=== PATIENT | female | born 1965 | race Asian ===

== ENCOUNTER 2016-11-12 11:42 | Emergency (ER) | payer SELFPAY ==
[2016-11-12 11:53] VITALS: BP 131/81
[2016-11-12] MEDS ORDERED: Bacitracin Oint 1 GM U/D Packet TOP ONE (12:26)
[2016-11-12] MEDS ORDERED: Acetaminophen 325 MG Tab PO ONE (12:27)
--- NOTE | 2016-11-12 12:32 | EDM.PDOC ---
ED HPI GENERAL MEDICAL PROBLEM - General Chief Complaint: Laceration Stated Complaint: [id number] FELL DOWN Time Seen by Provider: 11/12/16 12:22 Source of Information: Reports: Patient (via friend) History Limitations: Reports: Language Barrier - History of Present Illness INITIAL COMMENTS - FREE TEXT/NARRATIVE: This 50 yo female patient reports to the ED with a laceration to her left scalp due to a fall on Thursday (11/10/16) at 0500. 2 days ago the patient slipped on the floor and hit her head on the corner of the wall. The patient has controlled the bleeding, but has continued to have some oozing and a headache. The patient just told her friend about the incident and was brought directly to the ED. Onset Date: 11/10/16 Onset Time: 05:00 Duration: Constant Location: Reports: Head Quality: Reports: Ache, Dull Severity: Moderate Improves with: Reports: None Worsens with: Reports: None Context: Reports: Trauma (fall (2 days ago)) Associated Symptoms: Reports: No Other Symptoms Left Parietal Head Pain Score (Numeric/FACES): 3 - Related Data Allergies Allergy/AdvReac Type Severity Reaction Status Date / Time No Known Allergies Allergy Verified 11/12/16 12:21 Home Meds: Home Meds . [No Known Home Meds] 11/12/16 [History] Past Medical History - Past Surgical History Musculoskeletal Surgical History: Reports: Shoulder Surgery Social & Family History - Family History Family Medical History: Noncontributory ED ROS GENERAL - Review of Systems Review Of Systems: ROS reveals no pertinent complaints other than HPI. ED EXAM, SKIN/RASH Exam: See Below Exam Limited By: Language Barrier (the patient's friend speaks Peruvian and translated for the patient) General Appearance: Alert, WD/WN, Mild Distress, Thin Eye Exam: Bilateral Eye: EOMI, Normal Inspection, PERRL Ears: Normal External Exam, Normal Canal, Hearing Grossly Normal, Normal TMs Nose: Normal Inspection, Normal Mucosa, No Blood Throat/Mouth: Normal Inspection, Normal Lips, Normal Teeth, Normal Gums, Normal Oropharynx, Normal Voice, No Airway Compromise Head: Other (The patient has a 2 cm laceration with healing to her left scalp. Due to the age of the laceration and current stage of healing. The patient was encouraged to continue to keep the area clean and dry. ) Neck: Normal Inspection, Supple, Non-Tender, Full Range of Motion Respiratory/Chest: No Respiratory Distress, Lungs Clear, Normal Breath Sounds, No Accessory Muscle Use, Chest Non-Tender Cardiovascular: Normal Peripheral Pulses, Regular Rate, Rhythm, No Edema, No Gallop, No JVD, No Murmur, No Rub GI/Abdominal: Normal Bowel Sounds, Soft, Non-Tender, No Organomegaly, No Distention, No Abnormal Bruit, No Mass (Female) Exam: Deferred Rectal (Female) Exam: Deferred Back Exam: Normal Inspection, Full Range of Motion, NT Extremities: Normal Inspection, Normal Range of Motion, Non-Tender, No Pedal Edema, Normal Capillary Refill Neurological: Alert, Oriented, CN II-XII Intact, Normal Cognition, Normal Gait, Normal Reflexes, No Motor/Sensory Deficits Psychiatric: Normal Affect, Normal Mood Skin: Warm, Dry, Normal Color, No Rash Location, Skin: Head Characteristics: Linear Associated features: Tenderness. No: Warmth, Wwelling Lymphatic: No Adenopathy Course - Vital Signs Last Recorded V/S: Last Vital Signs Temp 36.8 C 11/12/16 11:52 Pulse 73 11/12/16 11:52 Resp 16 11/12/16 11:52 BP 131/81 11/12/16 11:52 Pulse Ox 98 11/12/16 11:52 - Orders/Labs/Meds Meds: Medications Discontinued Medications Generic Name Dose Route Start Last Admin Trade Name Gokul PRN Reason Stop Dose Admin Acetaminophen 650 mg 11/12/16 12:27 Tylenol PO 11/12/16 12:28 NOW ONE Bacitracin 1 dose 11/12/16 12:26 Bacitracin Oint 1 Gm TOP 11/12/16 12:27 ONETIME ONE Departure - Departure Time of Disposition: 12:30 Disposition: Home, Self-Care 01 Condition: fair Clinical Impression: Laceration of scalp Qualifiers: Encounter type: initial encounter Qualified Code(s): S01.01XA - Laceration without foreign body of scalp, initial encounter - Discharge Information Instructions: Laceration Care, Adult, [id number] Forms: ED Department Discharge Care Plan Goals: The patient was advised of the examination results during the visit. The patient 's wound was dressed with topical antibiotics. The patient was given Tylenol for her pain. The patient was encouraged to keep the area clean. The patient may take Tylenol as directed for temporary symptom relief. If the patient has any additional symptoms or concerns, the patient should follow-up with her primary care facility or return to the emergency department.
== END 2016-11-12 12:44 | disposition home or self-care (01) ==
LOC: DL.ED 11:42
DX: S01.01XA Laceration without foreign body of scalp, initial encounter (principal); W19.XXXA Unspecified fall, initial encounter; Y93.89 Activity, other specified
CPT/HCPCS: 99283; A9270; 99282